=== PATIENT | male | born 1950 | race Caucasian/White ===

== ENCOUNTER 2017-01-05 23:53 | Emergency (ER) | payer MEDICARE, BC, OTHER ==
[2017-01-06] MEDS ORDERED: NORMAL SALINE 1000 ML 1,000 ML IV ONE (00:25)
--- NOTE | 2017-01-06 00:27 | ER Document Report ---
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 Patient states that he had been drinking most of the day with friends. He was sitting at a bar when he reports he began to feel lightheaded, nauseated, seeing spots in his vision. States this feels very similar to when he has had syncope in the past. States he did fall off a stool but went to state that he did not hit his head or neck. At time of arrival patient denies any complaints stating that he feels much better now that he was lying down on the stretcher for a period of time. He denies any chest pain, shortness of breath focal weakness or numbness either before or after the episode. No witnessed seizure activity and no postictal period noted by EMS. No history of DVT or pulmonary embolus. - Related Data Allergies/Adverse Reactions: codeine Allergy (Verified 01/06/17 00:21) Past Medical History - General Information source: Patient - Social History Smoking Status: Never Smoker Frequency of alcohol use: Occasional Drug Abuse: None Lives with: Spouse/Significant other Family History: Reviewed & Not Pertinent Endocrine Medical History: Reports: Hx Diabetes Mellitus Type 1, Hx Diabetes Mellitus Type 2 Past Surgical History: Reports: Hx Abdominal Surgery - LIVER TRANSPLANT, SPLEENECTOMY, Hx Cholecystectomy, Hx Orthopedic Surgery - BILATERAL KNEES Review of Systems - Review of Systems Notes: Constitutional: Negative for fever. HENT: Negative for sore throat. Eyes: Negative for visual changes. Cardiovascular: Negative for chest pain. Respiratory: Negative for shortness of breath. Gastrointestinal: Negative for abdominal pain, vomiting or diarrhea. Genitourinary: Negative for dysuria. Musculoskeletal: Negative for back pain. Skin: Negative for rash. Neurological: Negative for headaches, weakness or numbness. 10 point ROS negative except as marked above and in HPI. Physical Exam - Vital signs Vitals: Resp Pulse Ox 29 H 94 01/06/17 00:14 01/06/17 00:14 Documented respiratory rate is not accurate. Patient was not tachypnea at time of arrival, respiratory was 18 even and unlabored Notes: PHYSICAL EXAMINATION: GENERAL: Well-appearing, well-nourished and in no acute distress. HEAD: Atraumatic, normocephalic. EYES: Pupils equal round and reactive to light, extraocular movements intact, sclera anicteric, conjunctiva are normal. ENT: nares patent, oropharynx clear without exudates. Moist mucous membranes. NECK: Normal range of motion, supple without lymphadenopathy LUNGS: Breath sounds clear to auscultation bilaterally and equal. No wheezes rales or rhonchi. HEART: Regular rate and rhythm without murmurs ABDOMEN: Soft, nontender, normoactive bowel sounds. No guarding, no rebound. No masses appreciated. EXTREMITIES: Normal range of motion, no pitting or edema. No cyanosis. NEUROLOGICAL: No focal neurological deficits. Moves all extremities spontaneously and on command. PSYCH: Normal mood, normal affect. SKIN: Warm, Dry, normal turgor, no rashes or lesions noted. Course - Re-evaluation Re-evalutation: 01/06/17 00:26 Presentation of syncope of unclear etiology. However, patient admits to drinking most of the day today and has had similar episodes syncope in similar settings in the past. Patient normotensive, alert, without focal neurologic deficits at time of arrival. Denies syncope was during exertion. No preceding symptoms of palpitations, chest pain, or shortness of breath. Patient asymptomatic at time of arrival. EKG is without evidence of HCOM, right heart strain, ST changes to suggest ischemia, prolong QTc, delta wave, epsilon wave, or Brugada syndrome. Patient denies any family history of sudden cardiac , personal history of of structural heart disease. Patient denies any symptoms to suggest an acute PE, OH, TAD, SAH, seizure, or acute GI bleed as the etiology of their syncope today. Laboratories show a nonspecific leukocytosis but are otherwise unremarkable. On exam, no murmurs to suggest critical aortic stenosis as possible etiology. Based on overall clinical history, exam findings , vitals, and patients appearance, I feel it is safe for patient to be discharged home at this time with close outpatient follow-up and strict return precautions. Patient is in agreement with this plan, has verbalized indications for return to ED, and questions have been answered. - Vital Signs Vital signs: Temp Pulse Resp BP Pulse Ox 19 123/76 97 01/06/17 01:01 01/06/17 01:00 01/06/17 01:01 - Laboratory Result Diagrams: 01/06/17 00:07 01/06/17 00:07 Laboratory results interpreted by me: 01/06/17 01/06/17 00:07 00:07 WBC 17.7 H Absolute Neutrophils 13.6 H BUN 23 H Glucose 67 L - EKG Interpretation by Me Additional EKG results interpreted by me: 01/06/17 00:26 Normal sinus rhythm. Rate 80. No ST elevations or depressions. First-degree AV block. QTC is 443. No old for comparison. Discharge - Discharge Clinical Impression: Syncope and collapse Condition: Good Disposition: HOME, SELF-CARE Additional Instructions: You were seen today after an episode of passing out. Your EKG here is normal. At this time, we do not feel that your episode of passing out was from any life- threatening cause. Please drink plenty of fluids over the next several days. Return to emergency department if you have any further episodes of syncope, headache, weakness, numbness, chest pain, or shortness of breath. Please follow up closely with your primary care physician.
[2017-01-06 00:28] LABS: ABSOLUTE BASOPHILS # (AUTO) 0.1 10^3/uL (0.0-0.2); ABSOLUTE EOSINOPHILS # (AUTO) 0.1 10^3/uL (0.0-0.6); ABSOLUTE LYMPHOCYTES (AUTO) 2.8 10^3/uL (0.5-4.7); ABSOLUTE MONOCYTES (AUTO) 1.2 10^3/uL (0.1-1.4); ABSOLUTE NEUT (AUTO) 13.6 10^3/uL (1.7-8.2); BASOPHILS % (AUTO) 0.7 % (0-2); EOSINOPHILS % (AUTO) 0.8 % (0-6); HEMATOCRIT 42.3 % (37.9-51.0); HGB HCT DIFFERENCE -0.3; LYMPHOCYTES % (AUTO) 15.6 % (13-45); MEAN CORPUSCULAR VOLUME 94 fl (80-97); MONOCYTES % (AUTO) 6.6 % (3-13); RED BLOOD COUNT 4.51 10^6/uL (4.35-5.55); RED CELL DISTRIBUTION WIDTH 12.6 % (11.5-14.0); SEGMENTED NEUTROPHILS % (AUTO) 76.3 % (42-78); WHITE BLOOD COUNT 17.7 10^3/uL (4.0-10.5)
[2017-01-06 00:58] LABS: ANION GAP 14 (5-19); BLOOD UREA NITROGEN 23 mg/dL (7-20); CALCIUM 9.1 mg/dL (8.4-10.2); CARBON DIOXIDE 23 mmol/L (22-30); CHLORIDE 103 mmol/L (98-107); GLUCOSE 67 mg/dL (75-110); POTASSIUM 3.9 mmol/L (3.6-5.0); SODIUM 140.2 mmol/L (137-145)
[2017-01-06 03:09] VITALS: BP 125/77
--- NOTE | 2017-01-06 09:35 | EKG REPORT ---
SEVERITY:- ABNORMAL ECG - SINUS RHYTHM ATRIAL PREMATURE COMPLEX FIRST DEGREE AV BLOCK PROBABLE LEFT ATRIAL ABNORMALITY LEFT ANTERIOR FASCICULAR BLOCK : Confirmed by: Tereza Parra 06-Jan-2017 09:35:02
== END 2017-01-06 03:08 | disposition home or self-care (01) ==
LOC: ER 23:53
DX: R55 Syncope and collapse (principal); R42 Dizziness and giddiness; W07.XXXA Fall from chair, initial encounter
CPT/HCPCS: 36415; 80048; 84484; 85025; 93005; 93010; 99284